=== PATIENT | male | born 1935 | race Caucasian/White ===

== ENCOUNTER 2016-11-21 08:50 | Emergency (ER) | payer MEDICARE, BC ==
--- NOTE | 2016-11-21 12:01 | ERNOTE ---
Lower Extremity HPI - Narrative Date of Service: 11/21/16 - General Time Seen by Provider: 11/21/16 09:00 Source: family Exam Limitations: dementia - Immun/Allergies/Home Medications Immunizations: IMMUNIZATION HX Immunizations Up to Date Yes History of Influenza Vaccine Yes Hx Pneumococcal Vaccination Yes Allergies/Adverse Reactions: Allergies Allergy/AdvReac Type Severity Reaction Status Date / Time No Known Drug Allergies Allergy Verified 11/21/16 08:59 Home Medications: HOME MEDICATIONS Aspirin [Aspirin Chewable] 81 mg PO DAILY 08/31/12 [Last Taken Unknown] Losartan Potassium [Cozaar] 50 mg PO DAILY 08/31/12 [Last Taken Unknown] Donepezil HCl [Aricept] 10 mg PO DAILY 06/02/13 [Last Taken Unknown] Finasteride [Proscar] 5 mg PO DAILY 07/03/15 [Last Taken Unknown] FLUoxetine HCL [Prozac] 20 mg PO DAILY 11/21/16 [Last Taken Unknown] - History of Present Illness Narrative: Patient presents to the ED with hip pain after a fall. He is at [facility] and fell today. Daughter relates that he is suffering from frequent falls. He denies any pain at this time but reports from EMS indicated he was initially complaining of right hip pain. EMS also reported possible low back pain but his daughter relates he always complains of that. No fever. No vomiting. He suffers from dementia. Nothing to suggest head injury. No complaints at this time. Occurred: just prior to arrival Location of Incident: [facility] [place]\ Method of Injury: Reports: fell Reason for Fall: Reports: other - frequent falls Associated Symptoms: Denies: unable to bear weight, weakness, chest pain Other Injuries: Reports: none Review of Systems - Narrative Narrative: ROS not obtainable secondary to Dementia - Patient's Past Medical History Patient History - Medical: Dementia Patient History - Cardiac/Respiratory: CVA/Stroke, Hypertension, Hyperlipidemia , Pneumonia Patient History - Cancer: No Hx of Cancer Patient History - Surgical Procedures: Appendectomy, Cataracts, Cardiac stent Patient History - Other: None - Family History Mother Family History - Medical: Father Family History - Medical: - Social History Living Situations: assisted living Abuse History: No History of abuse Psych History: No pertinent hx Smoking Status: Never smoker Alcohol Use: none Drug Use: none - Immunizations Immunizations Up to Date: Yes Hx Pneumococcal Vaccination: Yes History of Influenza Vaccine: Yes Physical Exam - Physical Exam General Appearance: Present: alert, no apparent distress Head Exam: Present: normal inspection, no evidence of injury. Absent: no tenderness w palpation, active bleeding, Reyna's Sign Eye Exam: Normal inspection: bilateral, PERRL: bilateral Ears, Nose, Throat: Present: normal ENT inspection Neck: Present: normal inspection, nontender. Absent: tender posterior midline Respiratory: Present: no respiratory distress, normal breath sounds, lungs clear Cardiovascular/Chest: Present: regular rate, rhythm Gastrointestinal/Abdominal: Present: normal bowel sounds, nontender, soft Back Exam: Present: normal inspection, normal range of motion. Absent: CVA tenderness (R), CVA tenderness (L), vertebral tenderness Extremity Exam: Present: normal inspection, non-tender, normal range of motion Neurological Exam: Present: alert, no motor/sensory deficits, other - patient has demetia, thinks it is 1937 and does not know the president Skin Exam: Present: normal color, warm/dry, other - no lacerations ED Progress - Vital Signs Patient's Vital Signs:: I have reviewed the patient's vital signs. Vital Signs: Vital Signs 11/21/16 11/21/16 11/21/16 08:55 10:28 10:51 Temperature 36.7 C Pulse Rate 67 64 110 H Respiratory 16 16 Rate Blood Pressure 146/67 153/89 170/80 O2 Sat by Pulse 94 94 94 Oximetry 11/21/16 11:07 Temperature Pulse Rate 98 Respiratory 16 Rate Blood Pressure 162/73 O2 Sat by Pulse 95 Oximetry - X-Ray X-Ray #1 X-Ray: lumbosacral Interpretation: Reviewed by me X-ray Comments: I reviewed radiology report. X-Ray #2 X-Ray: hip Interpretation: Reviewed by me X-ray Comments: I reviewed radiology report - Progress/Reassessment Chief Complaint: Hip Pain/Injury Progress Note-Subjective: 11/21/16 12:00 No tenderness noted on exam. HE was able to take some steps by the bed. D/W Daughter who is here. Will return to [facility]. Departure Clinical Impression: Fall, Musculoskeletal pain - Departure Disposition: Other health care facility Condition: Stable Instructions: Fall Prevention in the Home Additional Instructions: Rest. Phone follow-up with patient's primary doctor tomorrow for a condition report. Return for pain, weakness or if his condition worsens or changes in any way. Referrals: Clem Fierro DO [Primary Care Provider] -
[2016-11-21 12:29] VITALS: BP 122/75
== END 2016-11-21 12:29 | disposition short-term general hospital (02) ==
LOC: ER 08:50
DX: M79.1 Myalgia (principal); W19.XXXA Unspecified fall, initial encounter; Y92.129 Unspecified place in nursing home as the place of occurrence of the external cause; F03.90 Unspecified dementia, unspecified severity, without behavioral disturbance, psychotic disturbance, mood disturbance, and anxiety; I10 Essential (primary) hypertension; Z95.5 Presence of coronary angioplasty implant and graft

== ENCOUNTER 2017-01-26 05:28 | Emergency (ER) | payer MEDICARE, BC ==
[2017-01-26 06:05] LABS: Hematocrit 38.3 % (42.0-52.0); Hemoglobin 12.8 gm/dL (13.5-18.0); Mean Cell Volume 101.3 fl (78-100); Mean Corpuscular Hemoglobin 33.9 pg (27-31); Mean Corpuscular Hgb Conc 33.4 g/dl (32-36); Mean Platelet Volume 8.7 fl (6.0-9.5); Neutrophil # 5.4 K/mm3 (1.3-6.0); Neutrophil % 70.7 % (42-75.0); Platelet Count 252 K/mm3 (150-450); Red Blood Count 3.78 M/mm3 (4.7-6.0); White Blood Count 7.6 K/mm3 (4.0-10.5)
--- NOTE | 2017-01-26 06:07 | ERNOTE ---
Neuro HPI ER Record Presenting Symptoms: facial droop Time Seen by Provider: 01/26/17 05:32 Source: EMS notes reviewed, [place] [facility] records Exam Limitations: dementia Immunizations: IMMUNIZATION HX Immunizations Up to Date Yes History of Influenza Vaccine Yes Hx Pneumococcal Vaccination Yes Allergies/Adverse Reactions: Allergies Allergy/AdvReac Type Severity Reaction Status Date / Time No Known Drug Allergies Allergy Verified 01/26/17 05:36 Home Medications: HOME MEDICATIONS Aspirin [Aspirin Chewable] 81 mg PO DAILY 08/31/12 [Last Taken Unknown] Losartan Potassium [Cozaar] 50 mg PO DAILY 08/31/12 [Last Taken Unknown] Donepezil HCl [Aricept] 10 mg PO DAILY 06/02/13 [Last Taken Unknown] Finasteride [Proscar] 5 mg PO DAILY 07/03/15 [Last Taken Unknown] FLUoxetine HCL [Prozac] 20 mg PO DAILY 11/21/16 [Last Taken Unknown] Acetaminophen [Tylenol] 650 mg PO Q4H PRN 01/26/17 [Last Taken Unknown] Cyanocobalamin [Vitamin B-12] 1,000 mcg PO DAILY 01/26/17 [Last Taken Unknown] Magnesium Hydroxide [Milk Of Magnesia] 30 ml PO DAILY PRN 01/26/17 [Last Taken Unknown] Megestrol Acetate [Megace Suspension] 40 mg PO DAILY 01/26/17 [Last Taken Unknown] Memantine HCl [Namenda] 10 mg PO DAILY 01/26/17 [Last Taken Unknown] NIFEdipine [Nifedipine ER] 60 mg PO DAILY 01/26/17 [Last Taken Unknown] Simvastatin 20 mg PO HS 01/26/17 [Last Taken Unknown] Tamsulosin HCl 0.4 mg PO DAILY 01/26/17 [Last Taken Unknown] Travoprost [Travatan Z] 1 drop OP DAILY 01/26/17 [Last Taken Unknown] - History of Present Illness Narrative: NH felt pt had right side weakness and facial droop. EMS reported mild face droop without other weakness Onset: upon waking, cannot confirm onset, gone now Severity: mild - Character of Deficits New weakness: Present: facial (rt) Baseline Cognition: Present: alert but confused Baseline Gait: Present: uses a cane/walker Associated Symptoms: Reports: none Review of Systems - Narrative Narrative: ROS taken from pt's daughter - Review of Systems Constitutional: Absent: recent illness EYE: Present: no symptoms reported ENT: Present: no symptoms reported Respiratory: Absent: shortness of breath Cardiology: Absent: chest pain Gastrointestinal/Abdominal: Present: no symptoms reported Genitourinary: Present: no symptoms reported Musculoskeletal: Present: no symptoms reported Skin: Present: no symptoms reported Neurological: Present: tremors, pre-existing deficit - that is mild or unnoticible most of the time. Dementia has been worsening in general lately and has recently been placed in NH. . Absent: headache, weakness, numbness, tingling Endocrine: Present: no symptoms reported Hematologic/Lymphatic: Present: no symptoms reported Psych: Present: no symptoms reported - Patient's Past Medical History Patient History - Medical: Dementia Patient History - Cardiac/Respiratory: CVA/Stroke, Hypertension, Hyperlipidemia , Pneumonia Patient History - Cancer: No Hx of Cancer Patient History - Surgical Procedures: Appendectomy, Cataracts, Cardiac stent Patient History - Other: None - Family History Mother Family History - Medical: Father Family History - Medical: - Social History Living Situations: assisted living Abuse History: No History of abuse Psych History: No pertinent hx Alcohol Use: none Drug Use: none - Immunizations Immunizations Up to Date: Yes Hx Pneumococcal Vaccination: Yes History of Influenza Vaccine: Yes Physical Exam - Physical Exam General Appearance: Present: wd/wn, alert, no apparent distress Head Exam: Present: normal inspection, no evidence of injury Eye Exam: Normal inspection: bilateral, PERRL: bilateral, EOMI: bilateral Ears, Nose, Throat: Present: normal ENT inspection, normal pharynx Neck: Present: normal inspection, nontender Respiratory: Present: no respiratory distress, normal breath sounds, lungs clear Cardiovascular/Chest: Present: regular rate, rhythm, no murmur, normal peripheral pulses Gastrointestinal/Abdominal: Present: normal bowel sounds, nontender, nondistended, soft Extremity Exam: Present: normal inspection, non-tender, normal range of motion, no edema Neurological Exam: Present: alert, no motor/sensory deficits, electronic imager II-XII nml as tested, normal cerebellar test, facial droop - questionable/ very mild-left Skin Exam: Present: normal color, warm/dry Lymphatic Exam: Present: no adenopathy Marcos Coma Scale - Assess Eye Opening: Spontaneous Motor: Obeys Commands Verbal: Confused - as is his normal - Total Coma Scale Total: 14 ED Progress - Results and Orders Patient's Lab Results:: I have reviewed the patient's lab results. Results and Orders: Laboratory Tests 01/26/17 01/26/17 01/26/17 06:00 06:00 06:00 WBC 7.6 Hgb 12.8 L Hct 38.3 L Plt Count 252 ESR 4 Sodium 140 Potassium 4.3 Chloride 110 H Carbon Dioxide 21.1 L BUN 19 D Creatinine 0.92 Random Glucose 84 Calcium 8.9 Total Bilirubin 0.4 AST 15 ALT 14 L Alkaline Phosphatase 81 Total Protein 6.6 Albumin 3.1 L - Vital Signs Patient's Vital Signs:: I have reviewed the patient's vital signs. - X-Ray X-Ray #1 X-Ray: chest Interpretation: Reviewed by me X-ray Comments: IMPRESSION: 1. No acute cardiopulmonary findings. 2. Additional comments are as above. Electronically signed by Niraj Cash M.D.. - CT/Ultrasound CT/Ultrasound Narrative: IMPRESSION: 1. No acute intracranial hemorrhage or mass effect. 2. 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 3. Bilateral basal ganglia chronic lacunar infarcts. 4. Additional comments as above. If there is a persistent concern for ischemia, consider follow-up by brain MRI. Preliminary interpretation given by [facility] on 01/26/2017 6:43 AM. - Progress/Reassessment Progress:: Improved Departure Clinical Impression: Transient alteration of awareness Dementia Qualifiers: Dementia type: vascular dementia Dementia behavioral disturbance: without behavioral disturbance Qualified Code(s): F01.50 - Vascular dementia without behavioral disturbance - Departure Disposition: [facility] Condition: Good Instructions: Confusion
[2017-01-26 06:30] LABS: Albumin * 3.1 gm/dl (3.4-5.0); Anion Gap 13.2 mmol/L (6.8-13.8); BUN/Creatinine Ratio 20.7 (9.0-21.6); Bilirubin, Total 0.4 mg/dL (0.0-1.1); Ca. Corrected For Albumin 9.3 mg/dL (8.4-10.2); Calcium * 8.9 mg/dL (7.9-10.9); Carbon Dioxide 21.1 mmol/L (24-32.6); Potassium 4.3 mmol/L (3.4-4.6); Total Protein 6.6 gm/dL (6.2-8.2)
[2017-01-26 08:22] LABS: Urine Bilirubin Negative (NEGATIVE); Urine Blood Negative /ul (NEGATIVE); Urine Ketone Negative (NEGATIVE); Urine Nitrite Negative (NEGATIVE); Urine Protein Negative (NEGATIVE); Urine Urobilinogen Normal (NORMAL)
[2017-01-26 08:23] LABS: Urine Appearance Clear; Urine Bacteria TRACE; Urine Color Yellow; Urine Mucus TRACE; Urine RBC None Seen /hpf (0-5); Urine WBC TRACE /hpf (0-5)
[2017-01-26 08:30] VITALS: BP 180/80
== END 2017-01-26 08:52 ==
LOC: ER 05:28
PROC: 0T9B7ZZ Drainage of Bladder, Via Natural or Artificial Opening (ICD-10-PCS; principal; 2017-01-26)
DX: R40.4 Transient alteration of awareness (principal); F01.50 Vascular dementia, unspecified severity, without behavioral disturbance, psychotic disturbance, mood disturbance, and anxiety; E78.5 Hyperlipidemia, unspecified; I10 Essential (primary) hypertension; Z95.5 Presence of coronary angioplasty implant and graft